=== PATIENT | female | born 1990 | race Caucasian/White ===

== ENCOUNTER 2019-05-25 05:31 | Inpatient (IN) | payer MEDICAID ==
[2019-05-25] MEDS ORDERED: Acetaminophen 500 MG Tab PO ONE (05:45)
[2019-05-25] MEDS ORDERED: Dextrose 5%-Lactated Ringers 1,000 ML IV SCH (06:30)
[2019-05-25] MEDS ORDERED: Meropenem 500 MG SDV ONE (06:35)
[2019-05-25] MEDS ORDERED: Bupivacaine 0.5% 50 ML MDV ONE (06:35)
[2019-05-25] MEDS ORDERED: Lidocaine 1% with EPINEPHrine 1:100,000 50 ML MDV ONE (06:35)
[2019-05-25] MEDS ORDERED: diphenhydrAMINE 50 MG/ML SDV ONE (06:38)
[2019-05-25] MEDS ORDERED: Lidocaine 2% 5 ML SDV ONE (06:38)
[2019-05-25] MEDS ORDERED: Glycopyrrolate 0.2 MG/ML 5 ML MDV ONE (06:38)
[2019-05-25] MEDS ORDERED: Propofol 200 MG/20 ML SDV ONE (06:38)
[2019-05-25] MEDS ORDERED: Neostigmine Methylsulfate 1 MG/ML 5 ML Syringe ONE (06:38)
[2019-05-25] MEDS ORDERED: Rocuronium 50 MG/5 ML Vial ONE (06:38)
[2019-05-25] MEDS ORDERED: Dexamethasone 4 MG/ML SDV ONE (06:38)
[2019-05-25] MEDS ORDERED: Ondansetron 4 MG/2 ML SDV ONE (06:38)
[2019-05-25] MEDS ORDERED: Midazolam 1 MG/ML 2 ML SDV ONE (06:39)
[2019-05-25] MEDS ORDERED: fentaNYL 250 MCG/5 ML SDV ONE (06:40)
[2019-05-25] MEDS ORDERED: Meropenem 500 MG in Sodium Chloride 0.9% 50 ML IV ONE (07:15)
[2019-05-25] MEDS ORDERED: Magnesium Sulfate 4.2 GM in Sodium Chloride 0.9% 250 ML IV ONE (07:30)
[2019-05-25] MEDS ORDERED: Ropivacaine 44 ML, dexAMETHasone 8 MG, EPINEPHrine 0.4 MG, Sodium Chloride 0.9% 33.6 ML NERVRT SCH ×4 (07:30)
[2019-05-25] MEDS ORDERED: Ketamine 50 MG in Sodium Chloride 0.9% 49.5 ML IV SCH (07:30)
[2019-05-25] MEDS ORDERED: Magnesium Sulfate 2.6 GM in Sodium Chloride 0.9% 100 ML IV SCH (07:30)
[2019-05-25] MEDS ORDERED: Ketamine 500 MG/5 ML MDV IV SCH (07:30)
[2019-05-25] MEDS ORDERED: fentaNYL 100 MCG/2 ML SDV IVPUSH ONE (09:02)
[2019-05-25] MEDS ORDERED: hydrOXYzine HCL 100 MG/2 ML SDV IM ONE (09:04)
[2019-05-25] MEDS ORDERED: Acetaminophen 500 MG Tab PO PRN (10:03)
[2019-05-25] MEDS ORDERED: diphenhydrAMINE 50 MG/ML SDV IVPUSH PRN (10:03)
[2019-05-25] MEDS ORDERED: Labetalol 20 MG/4 ML Syringe IVPUSH PRN (10:03)
[2019-05-25] MEDS ORDERED: Cyclobenzaprine 10 MG Tab PO PRN (10:03)
[2019-05-25] MEDS ORDERED: HYDROmorphone 0.5 MG/0.5 ML Syringe IVPUSH PRN (10:03)
[2019-05-25] MEDS ORDERED: Calcium Gluconate 10% 1 GM/10 ML SDV IVPUSH PRN (10:05)
[2019-05-25] MEDS: HYDROmorphone 1 MG/ML Syringe IV PRN ×5 (10:20→20:56)
[2019-05-25] MEDS: Dextrose 5%-Lactated Ringers 1,000 ML IV SCH ×2 (11:41→22:24)
[2019-05-25] MEDS: oxyCODONE 5 MG Tab PO PRN (11:49)
[2019-05-25] MEDS: Meropenem 500 MG in Sodium Chloride 0.9% 50 ML IV SCH ×2 (13:26→20:48)
[2019-05-25] MEDS ORDERED: Pantoprazole 40 MG Vial IVPUSH SCH (14:00)
[2019-05-25] MEDS ORDERED: Benzocaine/Cetylpyridinium/Menthol Lozenge MUCMEM PRN (14:14)
[2019-05-25] MEDS: Acetaminophen 500 MG Tab PO SCH ×2 (14:44→21:04)
[2019-05-25] MEDS: Levothyroxine 50 MCG Tab PO SCH (14:54)
[2019-05-25] MEDS ORDERED: MVI, Adult with Vitamin K 10 ML, Thiamine 200 MG, Chromium/Copper/Mang/Selen/Zn 1 ML in... IV SCH ×4 (16:00)
[2019-05-25] MEDS: Heparin Sodium 5,000 Units/ML Vial SUBCUT SCH (16:20)
[2019-05-25] MEDS: hydrOXYzine HCL 100 MG/2 ML SDV IM PRN (16:21)
[2019-05-26] MEDS: HYDROmorphone 1 MG/ML Syringe IV PRN ×3 (01:38→08:49)
[2019-05-26] MEDS: Meropenem 500 MG in Sodium Chloride 0.9% 50 ML IV SCH (01:45)
[2019-05-26] MEDS: Heparin Sodium 5,000 Units/ML Vial SUBCUT SCH ×2 (04:14→16:05)
[2019-05-26] MEDS: Dextrose 5%-Lactated Ringers 1,000 ML IV SCH (04:15)
[2019-05-26] MEDS ORDERED: Iopamidol 510 MG/ML 50 ML SDV PO ONE (05:03)
[2019-05-26] MEDS: hydrOXYzine HCL 100 MG/2 ML SDV IM PRN ×3 (05:46→18:19)
[2019-05-26] MEDS: oxyCODONE 5 MG Tab PO PRN (05:46)
[2019-05-26] MEDS: Acetaminophen 500 MG Tab PO SCH ×3 (05:52→21:46)
[2019-05-26] MEDS: Levothyroxine 50 MCG Tab PO SCH (07:45)
[2019-05-26] MEDS: Celecoxib 200 MG Cap PO SCH ×2 (08:57→20:24)
[2019-05-26] MEDS: VYVANSE 70 MG PO SCH (08:57)
[2019-05-26] MEDS ORDERED: Naloxone 0.4 MG/ML SDV IV PRN (08:59)
[2019-05-26] MEDS ORDERED: Dextrose 5%-Lactated Ringers 1,000 ML IV SCH (09:00)
[2019-05-26] MEDS: HYDROmorphone/Normal Saline 15 MG/30 ML PCA IV PRN (09:59)
[2019-05-26] MEDS ORDERED: MVI, Adult with Vitamin K 10 ML, Thiamine 200 MG, Chromium/Copper/Mang/Selen/Zn 1 ML in... IV SCH ×4 (10:00)
[2019-05-26] MEDS: Bisacodyl 5 MG Tab PO SCH ×2 (10:00→20:25)
[2019-05-26] MEDS: Docusate Sodium 100 MG Cap PO SCH ×2 (10:00→20:25)
[2019-05-26] MEDS: Ondansetron 4 MG/2 ML SDV IVPUSH PRN (11:08)
[2019-05-26] MEDS: Pantoprazole 40 MG Delayed-Release Granules 1 Packet PO SCH (16:05)
[2019-05-26] MEDS: Metoclopramide 10 MG/2 ML SDV IVPUSH PRN (20:18)
[2019-05-27] MEDS ORDERED: Lactated Ringers 500 ML IV ONE (00:15)
[2019-05-27] MEDS ORDERED: Tranexamic Acid 1,000 MG in Sodium Chloride 0.9% 50 ML IV ONE (05:07)
[2019-05-27] MEDS: Acetaminophen 500 MG Tab PO SCH ×3 (05:32→23:01)
[2019-05-27] MEDS: hydrOXYzine HCL 100 MG/2 ML SDV IM PRN (08:10)
[2019-05-27] MEDS: Levothyroxine 50 MCG Tab PO SCH (08:12)
[2019-05-27] MEDS: VYVANSE 70 MG PO SCH (10:03)
[2019-05-27] MEDS: Bisacodyl 5 MG Tab PO SCH ×2 (10:06→20:23)
[2019-05-27] MEDS: Celecoxib 200 MG Cap PO SCH ×2 (10:06→20:23)
[2019-05-27] MEDS: Docusate Sodium 100 MG Cap PO SCH ×2 (10:06→20:23)
[2019-05-27] MEDS: Cyanocobalamin (Vitamin B12) 1,000 MCG/ML SDV IM ONE ×2 (10:07→10:44)
[2019-05-27] MEDS: Ondansetron 4 MG/2 ML SDV IVPUSH PRN ×2 (12:52→20:06)
[2019-05-27] MEDS: Dextrose 5%-Lactated Ringers 1,000 ML IV SCH (12:52)
[2019-05-27] MEDS: HYDROmorphone/Normal Saline 15 MG/30 ML PCA IV PRN (15:50)
[2019-05-27] MEDS: Pantoprazole 40 MG Delayed-Release Granules 1 Packet PO SCH (15:51)
[2019-05-28] MEDS: Acetaminophen 500 MG Tab PO SCH ×3 (05:57→21:58)
[2019-05-28] MEDS: Levothyroxine 50 MCG Tab PO SCH (07:38)
[2019-05-28] MEDS: Magnesium Sulfate/Water 2 GM in Premix Bag 1 BAG IV SCH ×3 (08:50→20:24)
[2019-05-28] MEDS: Docusate Sodium 100 MG Cap PO SCH ×2 (08:51→20:41)
[2019-05-28] MEDS: Celecoxib 200 MG Cap PO SCH ×2 (08:51→20:42)
[2019-05-28] MEDS: VYVANSE 70 MG PO SCH (08:52)
[2019-05-28] MEDS: Bisacodyl 5 MG Tab PO SCH ×2 (08:52→20:41)
--- NOTE | 2019-05-28 09:03 | PN ---
DATE OF SERVICE: 05/28/2019 SUBJECTIVE: Kimber had an emesis over the weekend. Hemoglobin 6.5. She was given 3 units of packed red blood cells and her hemoglobin this morning is 9.5. She did receive 5 doses of Venofer IV at [facility]. She completed her last dose on 05/21/2019. Pain is controlled. Activity is improving. REVIEW OF SYSTEMS: Remainder of review of systems negative for any pertinent positives and negatives. OBJECTIVE: GENERAL: Kimber العلي is a 29-year-old female. VITAL SIGNS: TPR at 07:30, 99.3, 105, 18, blood pressure 125/77. HEENT: Negative. NECK: Supple. HEART: Regular rate and rhythm. LUNGS: Clear. ABDOMEN: Dressings dry and intact. Abdominal binder is on. EXTREMITIES: Without peripheral edema. ASSESSMENT: 1. Bleeding from the staple line. 2. Exploratory laparotomy with lysis of adhesions. a. Reduction of small bowel volvulus. b. Small bowel resection. c. Partial omentectomy. d. Repair of incarcerated incisional hernia. e. Repair of incisional hernia. f. 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 3. Date of surgery: 05/25/2019. Surgeon: Los Fitzgerald MD. PLAN: 1. Magnesium 2 g q.6 hours x72 hours IV, to check CBC, CMP, and phos in the a.m. 2. Iron gluconate 1 dose today and 1 tomorrow. At this time, the patient declines getting iron and her ferritin was less than 1, but she received 5 doses of Venofer as stated above. 3. Good pulmonary toilet. 4. We will evaluate p.r.n. or in a.m. Mckayla Womack PA-C /[id number]
--- NOTE | 2019-05-28 09:03 | CR ---
UGI Limited HISTORY: Post surgery FINDINGS: Patient swallowed water-soluble contrast. Upright views of the abdomen show no evidence of extravasation. There is some distention of the proximal jejunum. IMPRESSION: Status post bariatric surgery No extravasation. Jejunal distention. This may represent postoperative ileus. Obstruction is not excluded. Short-term follow-up recommended
[2019-05-28] MEDS ORDERED: Sodium Ferric Gluconate Cmplex 250 MG in Sodium Chloride 0.9% 100 ML IV SCH (10:00)
[2019-05-28] MEDS: HYDROmorphone/Normal Saline 15 MG/30 ML PCA IV PRN (12:50)
[2019-05-28] MEDS: Dextrose 5%-Lactated Ringers 1,000 ML IV SCH (13:33)
--- NOTE | 2019-05-28 15:12 | PN ---
DATE OF SERVICE: 05/26/2019 The patient has been afebrile with stable vital signs. The pain control looks a little bit marginal, and we will give her CORPORATE TUTOR Dilaudid today rather than IV push. Otherwise, we will go up to step-2 diet, begin some bowel stimulation, maximize activity, and work with pulmonary toilet. Los Fitzgerald MD /[id number]
--- NOTE | 2019-05-28 15:35 | PN ---
DATE OF SERVICE: 05/27/2019 The patient has been somewhat tachycardiac, and she had a small amount of hematemesis yesterday. We checked hemoglobin this morning, and it was down in the 6s. We will give her two units of packed RBCs, as it is felt she probably has done some bleeding from the staple lines, most likely into the intraluminal location. She has otherwise been fairly stable in appearance. We will give her 2 units of packed RBCs. Check CBC after that today. Otherwise, back down a little bit on the IV rate. Her urine output is actually fairly good. Continue bowel stimulation, and we will get her in the shower today, if tolerated. Los Fitzgerald MD /[id number]
[2019-05-28] MEDS: Pantoprazole 40 MG Delayed-Release Granules 1 Packet PO SCH (16:29)
[2019-05-28] MEDS: Ondansetron 4 MG/2 ML SDV IVPUSH PRN (18:18)
[2019-05-28] MEDS: Metoclopramide 10 MG/2 ML SDV IVPUSH PRN (20:28)
[2019-05-29] MEDS: Magnesium Sulfate/Water 2 GM in Premix Bag 1 BAG IV SCH ×2 (01:41→07:42)
[2019-05-29] MEDS: HYDROmorphone/Normal Saline 15 MG/30 ML PCA IV PRN (04:52)
[2019-05-29] MEDS: Acetaminophen 500 MG Tab PO SCH ×3 (05:00→21:14)
[2019-05-29] MEDS ORDERED: Sodium Ferric Gluconate Cmplex 250 MG in Sodium Chloride 0.9% 100 ML IV SCH (07:00)
[2019-05-29] MEDS ORDERED: Ondansetron 4 MG Tab.DIS PO PRN (07:32)
[2019-05-29] MEDS: Levothyroxine 50 MCG Tab PO SCH (07:41)
[2019-05-29] MEDS ORDERED: Calcium Carbonate 500 MG Tab.Chew PO PRN (08:09)
[2019-05-29] MEDS: Celecoxib 200 MG Cap PO SCH ×2 (09:25→21:14)
[2019-05-29] MEDS: Bisacodyl 5 MG Tab PO SCH ×2 (09:25→21:14)
[2019-05-29] MEDS: Docusate Sodium 100 MG Cap PO SCH ×2 (09:25→21:14)
[2019-05-29] MEDS: VYVANSE 70 MG PO SCH (09:26)
[2019-05-29] MEDS: Calcium Carbonate 500 MG Tab.Chew PO PRN ×2 (09:32→23:19)
[2019-05-29] MEDS: HYDROmorphone 2 MG Tab PO PRN ×4 (11:05→23:19)
--- NOTE | 2019-05-29 11:15 | PN ---
DATE OF SERVICE: 05/29/2019 SUBJECTIVE: Kimber had hemoglobin this morning of 8.7. She did have an episode that lasted about 4 hours what she calls acid reflux. She did get an order from Dr. Fitzgerald to have some Sprite and crackers and that settled it down. She has been up ambulating. Temperature max of 99.7. Has no other concerns or questions. OBJECTIVE: GENERAL: Kimber العلي is a pleasant 29-year-old female. Color pale. VITAL SIGNS: TPR at 07:46, 98.5, 98, 18, blood pressure 126/79. HEENT: Negative. NECK: Supple. HEART: Regular rate and rhythm. LUNGS: Clear. ABDOMEN: Aquacel dressings on. Abdominal binder is on. EXTREMITIES: Without peripheral edema. ASSESSMENT: 1. Bleeding from the staple line, requiring 3 units of packed red blood cells. 2. Exploratory laparotomy with lysis of adhesions. a. Reduction of small bowel volvulus. b. Small bowel resection. c. Partial omentectomy. d. Repair of incarcerated incisional hernia. e. Repair of incisional hernia. f. Placement of Interceed mesh. 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 Date of surgery: 05/25/2019. Surgeon: Los Fitzgerald MD. PLAN: 1. Step 3 gastric bypass diet. 2. Dilaudid 2 mg, take 2 to 4 q.4 hours p.r.n. pain. 3. Discontinue HOUSEKEEPING ASSOCIATE and continuous pulse ox. 4. Tums every 2 hours, may have at bedside. 5. Good pulmonary toilet. 6. We will evaluate p.r.n. or in a.m. Mckayla Womack PA-C /[id number]
[2019-05-29] MEDS: Pantoprazole 40 MG Delayed-Release Granules 1 Packet PO SCH (17:06)
[2019-05-30] MEDS: Acetaminophen 500 MG Tab PO SCH (06:00)
[2019-05-30] MEDS: HYDROmorphone 2 MG Tab PO PRN (06:01)
[2019-05-30] MEDS: Levothyroxine 50 MCG Tab PO SCH (07:57)
[2019-05-30] MEDS: Bisacodyl 5 MG Tab PO SCH (08:00)
[2019-05-30] MEDS: VYVANSE 70 MG PO SCH (08:00)
[2019-05-30] MEDS: Docusate Sodium 100 MG Cap PO SCH (08:00)
[2019-05-30] MEDS: Celecoxib 200 MG Cap PO SCH (08:00)
--- NOTE | 2019-05-30 12:17 | DISCH ---
ADMISSION DIAGNOSES: Partial small bowel obstruction, status post Rufina-en-Y gastric bypass surgery, unspecified surgical malabsorption, B12 deficiency, iron deficiency anemia, has had 5 Venofer infusions, mild intermittent asthma, allergic rhinitis, bipolar affective disorder, binge eating disorder, Ramiro's thyroiditis, migraine headaches without aura and without status migrainosus. DISCHARGE DIAGNOSES: 1. Bleeding from the staple line requiring 3 units of packed red blood cells. 2. Exploratory laparotomy with lysis of adhesions. a. Reduction of small bowel volvulus. b. Small bowel resection. c. Partial omentectomy. d. Repair of incarcerated incisional hernia. e. Repair of incisional hernia. f. Placement of Interceed mesh. POSTOPERATIVE DIAGNOSES: 1. 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 2. Date of surgery: 05/25/2019. Surgeon: Los Fitzgerald MD. HISTORY: Kimber العلي is a 29-year-old female with postprandial abdominal pain. After preoperative evaluation and discussion of possible risks and possible complications, she wished to proceed with surgical procedure. HOSPITAL COURSE: Kimber had her surgery on 05/25/2019. She had no operative complications. On postoperative day #1, 05/26/2019, she was afebrile. Pain control was an issue. She was started on a Dilaudid FINISHING AREA OPERATOR and started on step 2 gastric bypass. On 05/27/2019, she has been tachycardic, had a small amount of hematemesis. Hemoglobin was in the 6s. She was given 2 units of packed red blood cells for bleeding from the staple line. She remains stable. Output was good and pain was better controlled. On 05/28/2019, magnesium was replaced. Declined to have iron infusions and she seemed to be progressing and feeling better. On 05/29/2019, Kimber was started on oral pain medications. Diet was advanced to step 3. She did start having bowel movements. On 05/30/2019, she was able to be discharged to home in stable and improving condition. PHYSICAL EXAMINATION: GENERAL: Kimber العلي is a 29-year-old female. VITAL SIGNS: Height is 5 feet 7 inches, weight is 193 pounds. TPR at 07:53, 97.3; 77; 16; blood pressure 120/79. HEENT: Negative. NECK: Supple. HEART: Regular rate and rhythm. LUNGS: Clear. ABDOMEN: Aquacel dressing is on and abdominal binder is on. EXTREMITIES: Without peripheral edema. DISPOSITION: Discharged to home. CONDITION: Stable and improving. FOLLOWUP: Appointment with Mckayla Womack PA-C, on 06/06/2019 at 10 a.m. HOME MEDICATIONS: Celebrex 200 mg p.o. b.i.d., #28; Dilaudid 2 mg p.o. q.6 hours p.r.n. severe pain, #28; Zofran ODT 4 mg q.4 hours p.r.n. nausea, #30; levothyroxine 50 mcg oral before breakfast; Vyvanse 70 mg oral every morning; nystatin 1 dose topical 3 times a day p.r.n. rash; Imitrex 50 mg oral as directed p.r.n. migraine headaches; may resume vitamins and supplements. DIET: Step 3 gastric bypass diet. ACTIVITY: No lifting over 10 pounds for 6 weeks. Other activity: Walk at least 6 times daily inside your home. Driving: Do not drive for 1 week and while on pain medication. Shower/bathing: May shower. DISCHARGE INSTRUCTIONS: Notify provider if any fever, increased pain, swelling, redness, drainage, nausea, or vomiting. Wound incision care; keep site clean and dry. Wear abdominal binder for 6 weeks and then as tolerated. Take off Aquacel dressing on 06/01/2019. SPECIAL INSTRUCTIONS: Use incentive spirometer 10 times every hour while awake for 1 week.
--- NOTE | 2019-06-06 13:56 | OR ---
DATE OF PROCEDURE: 05/25/2019 SURGEON: Los Fitzgerald MD PREOPERATIVE DIAGNOSIS: Partial small bowel obstruction. POSTOPERATIVE DIAGNOSES: 1. Partial small bowel obstruction secondary to small bowel volvulus around omental adhesions into pelvis. 2. 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 3. Incarcerated (trocar) hernia. 4. Incarcerated umbilical hernia. OPERATIVE PROCEDURES: Exploratory laparotomy with lysis of extensive adhesions and, 1. Reduction of small bowel volvulus and closure of internal hernia (27432). 2. Small bowel resection (82977). 3. Partial omentectomy (17156). 4. Repair of incarcerated incisional hernia (11198). 5. Repair of incarcerated umbilical hernia (85600). 6. Placement of Interceed mesh to displace pelvic and abdominal fischer from underlying viscera to reduce subsequent adhesion formation (32742). ANESTHESIA: General. FLOWER MAKER: Mckayla Womack PA-C INDICATIONS FOR PROCEDURE: This is a 29-year-old presenting with history of Rufina-en-Y gastric bypass with a picture of partial small bowel obstruction. The plan is to proceed with exploratory laparotomy with release of the bowel obstruction with bowel resection as indicated. Potential risks including bleeding, infection, leaks from various GI tract closures, problems with bowel obstruction over time recurring were all reviewed, and the patient wishes to proceed. DETAILS OF PROCEDURE: The patient was taken to the operating room. After general endotracheal anesthesia was induced, a Jones catheter was inserted, and the abdomen was prepped and draped. A midline incision from the umbilicus roughly a handsbreadth toward the xiphoid was made and carried down through the full-thickness abdominal wall, and the peritoneal cavity entered. Upon entering the peritoneal cavity, there were some scattered omental adhesions to the anterior abdominal wall. As one went in the bowel, two areas of concern were identified. One was that of a fairly tight small bowel volvulus. This was related to an omental adhesion extending from the anterior abdominal wall below the incision and down to the pelvic area posteriorly. As this was mobilized upward, the adhesion was divided and the omental dissection then continued proximally. This dissection was taken away from that area of the volvulus. This area was nearby the jejunojejunostomy, which had a loop of bowel predominantly underneath this mesentery, which was reduced as well at this point, and that mesenteric defect then closed with a 2-0 silk stitch. The bowel around the area of the adhesion appeared to be viable and not strictured. The patient did have some narrowing related to chronic angulation of the Rufina limb as it entered the jejunojejunostomy, and this was felt best being treated with resection and revision of that area. The small bowel at the Rufina limb level, just adjacent to the jejunojejunostomy was divided and a small segment of that small bowel resected. The GI tract continuity was then accomplished with a [id number] anastomosis between the Rufina limb and the small bowel roughly 20 cm distal to the original jejunojejunostomy. This was then incised in a manner with internal firing of the BARRY 60 mm stapler. Common opening was closed transversely with the same stapler and angles anastomosed reinforced with some 3-0 Vicryl stitch, and the mesenteric defect closed with 2-0 silk stitch. At that point, no further intraabdominal problems were noted. It was notable that, on entrance of the abdomen, an incarcerated trocar site hernia was encountered, which contained some incarcerated omentum within it. This was reduced. The patient was also noted, at the lower end of the incision, to have an incarcerated umbilical hernia. This was likewise reduced and the contents excised. The patient was given bilateral transversus abdominis plane blocks and the fascia anesthetized with 1.5% Marcaine with epinephrine. Interceed mesh was then placed underneath the incision and from there down toward the pelvis to limit recurrent adhesion formation. The midline fascia was then approximated with #2 Vicryl stitch, which included closure of the umbilical and incisional hernias. The subcutaneous tissue was approximated with 2 layers of 3-0 and 4-0 Vicryl stitch, and the skin with minnie. Dressing was applied. The patient was taken to the recovery room in satisfactory condition. Physician religious assistant, Mckayla Womack, played an essential role in assisting in this case, helping to position the patient, retract structures as needed, as well as suturing and cutting sutures when indicated. Her presence improved patient safety and decreased the operative time. Los Fitzgerald MD /[id number]
== END 2019-05-30 09:45 | disposition home or self-care (01) | DRG 329 ==
LOC: JP.SDS 05:31 → JP.SDSSCHI 05:31 → JP.MS 08:50 → JP.2SS 10:38 → EDSTATUS 17:45
PROVIDERS: ADMIT Surgery; ATTEND Surgery
PROC: 0WQF0ZZ Repair Abdominal Wall, Open Approach (ICD-10-PCS; principal; 2019-05-25)
PROC: 0DS80ZZ Reposition Small Intestine, Open Approach (ICD-10-PCS; 2019-05-25)
PROC: 0DN80ZZ Release Small Intestine, Open Approach (ICD-10-PCS; 2019-05-25)
PROC: 0DBU0ZZ Excision of Omentum, Open Approach (ICD-10-PCS; 2019-05-25)
PROC: 0DB80ZZ Excision of Small Intestine, Open Approach (ICD-10-PCS; 2019-05-25)
PROC: 3E0M05Z Introduction of Adhesion Barrier into Peritoneal Cavity, Open Approach (ICD-10-PCS; 2019-05-25)
DX: K94.13 Enterostomy malfunction (principal); K56.2 Volvulus; K43.0 Incisional hernia with obstruction, without gangrene; K42.0 Umbilical hernia with obstruction, without gangrene; K90.9 Intestinal malabsorption, unspecified; Y83.8 Other surgical procedures as the cause of abnormal reaction of the patient, or of later complication, without mention of misadventure at the time of the procedure; K66.0 Peritoneal adhesions (postprocedural) (postinfection); E53.8 Deficiency of other specified B group vitamins; D64.9 Anemia, unspecified; J45.909 Unspecified asthma, uncomplicated; F31.9 Bipolar disorder, unspecified; F50.81 Binge eating disorder; E06.3 Autoimmune thyroiditis; G43.909 Migraine, unspecified, not intractable, without status migrainosus; F41.9 Anxiety disorder, unspecified; K21.9 Gastro-esophageal reflux disease without esophagitis; R73.03 Prediabetes; Z90.89 Acquired absence of other organs; Z79.890 Hormone replacement therapy; Z98.84 Bariatric surgery status; Z79.899 Other long term (current) drug therapy; Z88.1 Allergy status to other antibiotic agents; Z88.8 Allergy status to other drugs, medicaments and biological substances; Z88.0 Allergy status to penicillin; Z87.891 Personal history of nicotine dependence
CPT/HCPCS: 36415; 36430; 74240; 74240-26; 80053; 81025; 83735; 84100; 84443; 85018; 85025; 85027; 86850; 86900; 86901; 86920; 86922; 94762; A9270-GY; C9113; J0171; J1100; J1170; J1200; J1644; J2001; J2020; J2185; J2250; J2405; J2704; J2710; J2765; J2795; J3010; J3410; J3411; J3420; J3475; J3490; J7050; J7121; P9016; Q9966

== ENCOUNTER 2019-08-07 05:47 | Inpatient (IN) | payer MEDICAID ==
[2019-08-07] MEDS ORDERED: Acetaminophen 500 MG Tab PO ONE (06:15)
[2019-08-07] MEDS ORDERED: Celecoxib 200 MG Cap PO ONE (06:15)
[2019-08-07] MEDS ORDERED: Dextrose 5%-Lactated Ringers 1,000 ML IV SCH ×2 (06:30→11:30)
[2019-08-07] MEDS ORDERED: Albuterol/Ipratropium 3.0-0.5 MG/3 ML Neb Soln NEB ONE (07:05)
[2019-08-07] MEDS ORDERED: Glycopyrrolate 0.2 MG/ML 5 ML MDV ONE (07:09)
[2019-08-07] MEDS ORDERED: Neostigmine Methylsulfate 1 MG/ML 5 ML Syringe ONE (07:09)
[2019-08-07] MEDS ORDERED: Rocuronium 50 MG/5 ML Vial ONE (07:09)
[2019-08-07] MEDS ORDERED: Propofol 200 MG/20 ML SDV ONE (07:09)
[2019-08-07] MEDS ORDERED: fentaNYL 250 MCG/5 ML SDV ONE ×2 (07:09→07:52)
[2019-08-07] MEDS ORDERED: Dexamethasone 4 MG/ML SDV ONE (07:09)
[2019-08-07] MEDS ORDERED: Ondansetron 4 MG/2 ML SDV ONE (07:09)
[2019-08-07] MEDS ORDERED: Levofloxacin/Dextrose 5%-Water 500 MG in Premix Bag 1 BAG IV ONE (07:30)
[2019-08-07] MEDS ORDERED: Meropenem 500 MG SDV ONE (07:58)
[2019-08-07] MEDS ORDERED: Ketamine 50 MG in Sodium Chloride 0.9% 49.5 ML IV SCH (08:00)
[2019-08-07] MEDS ORDERED: Ketamine 500 MG/5 ML MDV IV SCH (08:00)
[2019-08-07] MEDS ORDERED: Ropivacaine 40 ML, dexAMETHasone 8 MG, EPINEPHrine 0.4 MG, Sodium Chloride 0.9% 37.6 ML NERVRT SCH ×4 (08:00)
[2019-08-07] MEDS ORDERED: Lactated Ringers 1,000 ML ONE (08:48)
[2019-08-07] MEDS ORDERED: Mupirocin Oint 22 GM Tube ONE (09:02)
[2019-08-07] MEDS ORDERED: hydrOXYzine HCL 100 MG/2 ML SDV IM ONE (09:49)
[2019-08-07] MEDS ORDERED: fentaNYL 100 MCG/2 ML SDV IVPUSH ONE (09:49)
[2019-08-07] MEDS ORDERED: Naloxone 0.4 MG/ML SDV IVPUSH PRN (09:59)
[2019-08-07] MEDS ORDERED: HYDROmorphone/Normal Saline 15 MG/30 ML PCA IV PRN (09:59)
[2019-08-07] MEDS ORDERED: Naloxone 0.4 MG/ML SDV IV PRN (10:07)
[2019-08-07] MEDS ORDERED: HYDROmorphone 0.5 MG/0.5 ML Syringe IVPUSH PRN (11:23)
[2019-08-07] MEDS ORDERED: HYDROmorphone 1 MG/ML Syringe IV PRN (11:23)
[2019-08-07] MEDS ORDERED: hydrOXYzine HCL 100 MG/2 ML SDV IM PRN (11:23)
[2019-08-07] MEDS ORDERED: Ondansetron 4 MG/2 ML SDV IVPUSH PRN (11:23)
[2019-08-07] MEDS ORDERED: oxyCODONE 5 MG Tab PO PRN (11:24)
[2019-08-07] MEDS ORDERED: Cyclobenzaprine 10 MG Tab PO PRN (11:24)
[2019-08-07] MEDS ORDERED: SUMAtriptan 50 MG Tab PO PRN (11:31)
[2019-08-07] MEDS ORDERED: Acetaminophen 500 MG Tab PO SCH (12:00)
[2019-08-07] MEDS: Magnesium Sulfate/Water 2 GM in Premix Bag 1 BAG IV SCH ×3 (12:04→23:11)
[2019-08-07] MEDS: Acetaminophen 500 MG Tab PO SCH ×3 (12:05→23:11)
[2019-08-07] MEDS: Pantoprazole 40 MG Tab.CR PO SCH (14:14)
[2019-08-07] MEDS: Levothyroxine 50 MCG Tab PO SCH (14:14)
[2019-08-07] MEDS: Sodium Ferric Gluconate Cmplex 250 MG in Sodium Chloride 0.9% 100 ML IV SCH (14:14)
[2019-08-07] MEDS ORDERED: Lactated Ringers 500 ML IV ONE (14:15)
[2019-08-08] MEDS: Magnesium Sulfate/Water 2 GM in Premix Bag 1 BAG IV SCH (05:20)
[2019-08-08] MEDS: Acetaminophen 500 MG Tab PO SCH ×3 (05:20→18:00)
[2019-08-08] MEDS: Pantoprazole 40 MG Tab.CR PO SCH (07:12)
[2019-08-08] MEDS: Levothyroxine 50 MCG Tab PO SCH (07:12)
[2019-08-08] MEDS: Levofloxacin/Dextrose 5%-Water 500 MG in Premix Bag 1 BAG IV SCH (07:12)
[2019-08-08] MEDS ORDERED: Ondansetron 4 MG Tab.DIS PO PRN (07:29)
[2019-08-08] MEDS ORDERED: Dextrose 5%-Lactated Ringers 1,000 ML IV SCH (07:30)
[2019-08-08] MEDS: Celecoxib 200 MG Cap PO SCH ×2 (08:32→20:13)
[2019-08-08] MEDS: HYDROmorphone 2 MG Tab PO PRN ×5 (08:32→20:16)
[2019-08-08] MEDS: Magnesium Oxide 400 MG Tab PO SCH (09:59)
--- NOTE | 2019-08-08 11:07 | PN ---
DATE OF SERVICE: 08/08/2019 SUBJECTIVE: Kimber is postoperative day #1. She states her pain is controlled. She has been up ambulating. Vital signs have been stable, and has no other questions or concerns. REVIEW OF SYSTEMS: Remainder of review of systems negative for any pertinent positives and negatives. OBJECTIVE: GENERAL: Kimber العلي is a pleasant 29-year-old female, alert and orientated. VITAL SIGNS: TPR at 0708; 97.3, 68, 18. Blood pressure is 111/62. HEENT: Negative. NECK: Supple. HEART: Regular rate and rhythm. LUNGS: Clear. ABDOMEN: Dressings dry and intact. BAY drains x2 intact and have put out 95 and 68 mL of a light pink drainage. EXTREMITIES: Without peripheral edema. ASSESSMENT: 1. Panniculectomy. 2. Repair of recurrent incarcerated incisional hernia and recurrent incarcerated umbilical hernia, and excision of lipoma for chronic panniculitis. 3. Recurrent incarcerated incisional hernia and recurrent incarcerated umbilical hernia, and bilobed subfascial lipoma 6.0 cm. Date of surgery: 08/07/2019. Surgeon: Los Fitzgerald MD. PLAN: 1. Discontinue MILK ROUTE SUPERVISOR and continuous pulse ox. 2. Discontinue oxycodone. 3. Dilaudid 2 to 4 mg every 4 hours p.r.n. pain. 4. Dressing off, may shower. 5. Teach patient BAY drain to strip, empty, measure and record each BAY drain 4 times a day. 6. Continue use of incentive spirometer and ambulation. 7. Plan discharge in the a.m. Mckayla Womack PA-C /[id number]
[2019-08-08] MEDS: Sodium Ferric Gluconate Cmplex 250 MG in Sodium Chloride 0.9% 100 ML IV SCH (14:28)
[2019-08-09] MEDS: Acetaminophen 500 MG Tab PO SCH ×2 (00:24→06:15)
[2019-08-09] MEDS: HYDROmorphone 2 MG Tab PO PRN ×3 (00:24→10:33)
[2019-08-09] MEDS: Levothyroxine 50 MCG Tab PO SCH (07:44)
[2019-08-09] MEDS: Pantoprazole 40 MG Tab.CR PO SCH (07:45)
[2019-08-09] MEDS: Levofloxacin/Dextrose 5%-Water 500 MG in Premix Bag 1 BAG IV SCH (08:19)
[2019-08-09] MEDS: Magnesium Oxide 400 MG Tab PO SCH (08:45)
[2019-08-09] MEDS: Celecoxib 200 MG Cap PO SCH (08:45)
--- NOTE | 2019-08-09 10:36 | DISCH ---
ADMISSION DIAGNOSES: 1. Chronic panniculitis. 2. Status post Rufina-en-Y gastric bypass surgery. 3. Unspecified surgical malabsorption. 4. B12 deficiency. 5. Vitamin D deficiency. 6. Iron-deficiency anemia, low iron, received two doses of IV iron and gluconate. 7. Mild intermittent asthma. 8. Migraine without aura. 9. Ramiro's thyroiditis. DISCHARGE DIAGNOSES: 1. Panniculectomy. 2. Repair of recurrent incarcerated incisional hernia and recurrent incarcerated umbilical hernia and excision of lipoma for chronic panniculitis. Date of surgery: 08/07/2019. Surgeon: Los Fitzgerald MD. HISTORY: Kimber is a 29-year-old female who had chronic panniculitis after weight loss surgery. After preoperative evaluation and discussion of possible risks and possible complications, she wished to proceed with surgical procedure. HOSPITAL COURSE: Kimber had her surgery on 08/07/2019. She had no operative complications. On postoperative day #1, she was started on oral pain medication, a regular step 4 gastric bypass diet. Her vital signs remained stable. She was afebrile. Taught how to take care of BAY drains and incisions. Pain was controlled and activity was good. Kimber was able to be discharged on postoperative day #2 without any complications. PHYSICAL EXAMINATION: GENERAL: Kimber اعللي is a pleasant 29-year-old female, alert and orientated. VITAL SIGNS: Height is 5 feet 7 inches. Weight is 181 pounds. TPR last checked on 08/08/2019 at 2229: 97.3, 87, 16, blood pressure 126/65. HEENT: Negative. NECK: Supple. HEART: Regular rate and rhythm. LUNGS: Clear. ABDOMEN: Stapled. Panniculectomy incision looks good. Two BAY drains are intact. Abdominal binder has been on. EXTREMITIES: Without peripheral edema. DISPOSITION: Discharged to home. CONDITION: Stable and improving. FOLLOWUP: Appointment with Mckayla Womack PA-C, on , 08/16/2019 at 9:00 a.m. HOME MEDICATIONS: 1. Dilaudid 2 mg every 6 hours p.r.n. pain #28. 2. Tylenol Extra Strength 1000 mg every 6 hours p.r.n. pain. 3. Celebrex 200 mg oral twice daily #28. To resume home medication as she was taking prior to admission: 1. Calcium citrate one b.i.d. 2. Vitamin B12 injection every 30 days. 3. Ferrous fumarate 324 mg oral daily. 4. Levothyroxine 50 mcg before breakfast. 5. Vyvanse 70 mg every morning. 6. Magnesium oxide 400 mg oral daily. 7. Nystatin p.r.n. rash. 8. Omeprazole 20 mg before breakfast. 9. Multivitamin b.i.d. 10.Imitrex 50 mg as directed p.r.n. migraine headache. 11.Vitamin B complex 1 daily. DIET AFTER DISCHARGE: Usual diet as tolerated, step 4 gastric bypass diet. Drink 8 to 10 glasses of water a day. ACTIVITY: No lifting over 10 pounds for 6 weeks. Driving after discharge: Do not drive for 1 week and while on pain medication. Shower/bathing: May shower. DISCHARGE INSTRUCTIONS: Notify provider if any fever, increased pain, nausea, vomiting. Keep site clean and dry. Wound incision care: Wear abdominal binder for 6 weeks. Strip, empty, measure, and record BAY drains 4 times a day and bring record of drainage to clinic appointment. Use incentive spirometer 10 times every hour while awake.
--- NOTE | 2019-08-16 11:13 | OR ---
DATE OF PROCEDURE: 08/07/2019 SURGEON: Los Fitzgerald MD PREOPERATIVE DIAGNOSIS: Chronic panniculitis. POSTOPERATIVE DIAGNOSES: 1. Chronic panniculitis. 2. Recurrent incarcerated incisional hernia. 3. Recurrent incarcerated umbilical hernia. 4. Bi-lobed subfascial lipoma (6 cm). OPERATIVE PROCEDURES: 1. Panniculectomy (18482). 2. Repair of recurrent incarcerated incisional hernia (72704). 3. Repair of recurrent incarcerated umbilical hernia (44111). 4. Excision of subfascial lipoma (43265). ANESTHESIA: General. VACUUM METALIZING SUPERVISOR: Mckayla Womack PA-C INDICATIONS FOR PROCEDURE: This is a 29-year-old female who is status post Rufina-en-Y gastric bypass, presenting with a large pannus which is chronically inflamed, as well as causing some orthopedic problems due to the imbalance caused by the large anterior pannus. Plan is to proceed with a panniculectomy. Potential risks of the procedure including bleeding, infection, some cosmetic deformity, as well as the remote possibility of cardiopulmonary, septic, or hemorrhagic complications leading to were discussed and the patient wishes to proceed. DETAILS OF PROCEDURE: The patient was taken to the operating room and placed in the supine position. After general endotracheal anesthesia was induced, a Jones catheter was inserted and the abdomen prepped and draped. A broadly based transverse elliptical incision was made and carried down through the skin and subcutaneous tissue down to the level of fascia. In the area just to the left of the midline, the patient was noted to have an area of incarcerated incisional hernia. This had recurred below the previous repair. It contained bowel up in the sac, which was dissected free. The hernia was subsequently then closed with a #2 Vicryl stitch. Fresh mesh was not placed. The patient was noted also to have a recurrent incarcerated umbilical hernia, and this was closed off with a [id number] stitch of #2 Vicryl stitch. This contained preperitoneal fat within it. The remainder of the pannus was then reflected off the abdominal wall. On the mid inferior aspect of the plane of dissection, a 6 cm bi-lobed lipoma was located below Virginia's fascia, and this was excised and sent as a separate specimen. After repair of the hernias at the fascial level, then the wound was drained with 4 Hung- Aleman drains, irrigated with meropenem and Zyvox containing saline solution. Transversus abdominis plane blocks were then placed and the subcutaneous tissue approximated with some 3- 0 Vicryl and the skin with minnie. Drains were affixed with some 3-0 Vicryl stitch as well. The patient was taken to the recovery room in satisfactory condition. There were no evident complications. Of note, the pannus weight was 10 pounds 12 ounces. Physician buyer assistant, Mckayla Womack, played an essential role in assisting in this case, helping to position the patient, retract structures as needed as well as suturing and stapling when indicated. Her presence improved patient's safety and decreased operative time. Los Fitzgerald MD /[id number]
== END 2019-08-09 11:15 | disposition home or self-care (01) | DRG 571 ==
LOC: JP.MS 05:47 → JP.SDS 05:47 → EDSTATUS 07:15 → JP.MS 09:45
PROVIDERS: ADMIT Surgery; ATTEND Surgery
PROC: 0JB80ZZ Excision of Abdomen Subcutaneous Tissue and Fascia, Open Approach (ICD-10-PCS; principal; 2019-08-07)
PROC: 0WQF0ZZ Repair Abdominal Wall, Open Approach (ICD-10-PCS; 2019-08-07)
PROC: 0WQF0ZZ Repair Abdominal Wall, Open Approach (ICD-10-PCS; 2019-08-07)
PROC: 0JB80ZZ Excision of Abdomen Subcutaneous Tissue and Fascia, Open Approach (ICD-10-PCS; 2019-08-07)
DX: M79.3 Panniculitis, unspecified (principal); K43.0 Incisional hernia with obstruction, without gangrene; K91.2 Postsurgical malabsorption, not elsewhere classified; K42.0 Umbilical hernia with obstruction, without gangrene; E55.9 Vitamin D deficiency, unspecified; E53.8 Deficiency of other specified B group vitamins; D50.9 Iron deficiency anemia, unspecified; J45.20 Mild intermittent asthma, uncomplicated; G43.009 Migraine without aura, not intractable, without status migrainosus; E06.3 Autoimmune thyroiditis; K21.9 Gastro-esophageal reflux disease without esophagitis; Z87.891 Personal history of nicotine dependence; Z88.0 Allergy status to penicillin; Z88.6 Allergy status to analgesic agent; Z88.1 Allergy status to other antibiotic agents; Z88.8 Allergy status to other drugs, medicaments and biological substances; Z79.899 Other long term (current) drug therapy
CPT/HCPCS: 81025; 88304; 88305; 94640; 94762; A9270-GY; J0171; J1100; J1170; J1956; J2020; J2185; J2405; J2704; J2710; J2795; J2916; J3010; J3410; J3475; J3490; J7050; J7120; J7121; J7620-GY